=== PATIENT | female | born 1980 | race African-American/Black ===

== ENCOUNTER 2017-06-16 10:54 | Emergency (ER) | payer OTHER ==
[~2017-06-16] VITALS: Ht 160 cm; Wt 74.7 kg
[~2017-06-16 10:54] MED LIST: ABILIFY10 MG PO; ABILIFY5 MG PO; ALDOMET250 MG PO; AMBIEN10 M1 PO; AMBIEN5 MG PO; AUGMENTIN 875-1 EACH PO; CEFDINIR300 MG PO; CYMBALTA60 MG PO; Cymbalta PO; ENDOCET 5-3251 EACH; FLEXERIL10 MG PO; FLONASE16 G1 BOTH NARES; Flagyl PO; HYDROCODON-ACE1 EAC7 PO; LISINOPRIL-HCT1 EAC3 PO; LORATADINE10 M2 PO; MOTRIN800 MG PO; NAPROSYN500 MG PO; NAPROXEN SODIU220 M1 PO; NOHOMEMEDS; PROAIR HFA8.5 GM IH; Procardia XL,Adalat PO; RISPERDAL2 MG PO; TRAZODONE HCL100 MG PO; Z-SLEEP50 MG/30 M PO
[2017-06-16 11:41] LABS: EOSINOPHIL (%) 1.4 % (0-5); EOSINOPHIL COUNT 0.2 K/uL (0-0.3); HEMATOCRIT 44.7 % (36.0-46.0); IMMATURE GRANULOCYTE (%) 0.3 % (0.0-0.7); INSTRUMENT ABS NEUTROPHIL CT 6.7 K/uL; LYMPHOCYTE COUNT 3.7 K/uL (1.0-2.8); MCH 26.3 PG (29.0-34.0); MCHC 30.6 G/DL (30.0-36.0); MEAN PLAT.VOLUME 9.7 uM^3 (9.5-12.4); MONOCYTE (%) 6.4 % (3-12); MONOCYTE COUNT 0.7 K/uL (0-0.8); NEUTROPHIL (%) 58.8 % (45-76); NEUTROPHIL COUNT 6.7 K/uL (1.8-6.4); PLATELET COUNT 273 K/uL (156-360); RBC DIS.WIDTH-CV 13.8 % (11.8-14.6); RBC DIS.WIDTH-SD 43.6 % (39-53); WHITE BLOOD COUNT 11.3 K/uL (4.1-10.2)
[2017-06-16 11:52] LABS: CHLORIDE 106 mEq/L (99-109); POTASSIUM 3.4 mEq/L (3.7-5.4); SODIUM 141 mEq/L (136-147)
[2017-06-16] MEDS ORDERED: TRAMADOL HCL50 MG PO (11:53)
[2017-06-16 11:54] LABS: GLUCOSE 101 mg/dL (70-99)
[2017-06-16 11:55] LABS: ANION GAP 9 MEQ/L (2-14)
[2017-06-16 11:57] LABS: SERUM ETHYL ALCOHOL < 10 mg/dL
[2017-06-16 11:58] LABS: GFR ESTIMATE (CALCULATED) > 59 mL/min/; UREA NITROGEN (BUN) 11 mg/dL (9-23)
[2017-06-16 12:06] LABS: QUANTITATIVE HCG < 4.0 MIU/ML
[2017-06-16 14:31] VITALS: BP 144/105
== END 2017-06-16 14:36 | disposition home or self-care (01) ==
LOC: EME 10:54
PROVIDERS: Emergency Medicine
DX: F41.0 Panic disorder [episodic paroxysmal anxiety] (principal); F16.10 Hallucinogen abuse, uncomplicated; J45.909 Unspecified asthma, uncomplicated; I10 Essential (primary) hypertension; F20.9 Schizophrenia, unspecified; F32.9 Major depressive disorder, single episode, unspecified; F17.210 Nicotine dependence, cigarettes, uncomplicated
CPT/HCPCS: 80048; 81003; 84702; 85025; 90839; 99281; 99284; G0480

== ENCOUNTER 2017-12-14 18:54 | Emergency (ER) | payer OTHER ==
[~2017-12-14] VITALS: Ht 170.2 cm; Wt 74.7 kg
[~2017-12-14 18:54] MED LIST changes: +TRAMADOL HCL50 MG PO
[2017-12-14] MEDS ORDERED: AMOXICILLIN500 M1 PO (22:54)
[2017-12-14] MEDS ORDERED: AMOXICILLIN875 MG PO (22:55)
[2017-12-14 23:44] VITALS: BP 140/107
== END 2017-12-14 23:45 | disposition home or self-care (01) ==
LOC: EME 18:54
DX: H66.92 Otitis media, unspecified, left ear (principal); I10 Essential (primary) hypertension; J06.9 Acute upper respiratory infection, unspecified; J45.909 Unspecified asthma, uncomplicated; F32.9 Major depressive disorder, single episode, unspecified; Z98.51 Tubal ligation status; F17.200 Nicotine dependence, unspecified, uncomplicated
CPT/HCPCS: 71046; 99281; 99284

== ENCOUNTER 2018-01-20 03:42 | Emergency (ER) | payer OTHER ==
[~2018-01-20] VITALS: Ht 160 cm; Wt 75.4 kg
[~2018-01-20 03:42] MED LIST changes: +AMOXICILLIN500 M1 PO; +AMOXICILLIN875 MG PO
[2018-01-20 05:47] VITALS: BP 160/105
== END 2018-01-20 05:48 | disposition home or self-care (01) ==
LOC: EME 03:42
DX: S50.861A Insect bite (nonvenomous) of right forearm, initial encounter (principal); W57.XXXA Bitten or stung by nonvenomous insect and other nonvenomous arthropods, initial encounter; Y92.003 Bedroom of unspecified non-institutional (private) residence as the place of occurrence of the external cause
CPT/HCPCS: 99281; 99284